=== PATIENT | male | born 1935 | race Caucasian/White ===

== ENCOUNTER 2018-06-08 07:19 | Emergency (ER) | payer MEDICARE, OTHER ==
[~2018-06-08] VITALS: Ht 182.9 cm; Wt 72.7 kg
[~2018-06-08 07:19] MED LIST: ANTIVERT25 MG PO; BAYER CHEWABLE81 MG PO; COZAAR100 MG PO; LIPITOR40 MG PO; NEXIUM40 MG PO; NIASPAN1000 MG PO; VALIUM 2 MG TAB2 MG PO
[2018-06-08 07:22] VITALS: Ht 182.9 cm; Wt 72.7 kg
[2018-06-08] MEDS ORDERED: TOPROL XL25 MG (07:24)
[2018-06-08] MEDS ORDERED: AUGMENTIN 875-11 TAB PO (09:11)
[2018-06-08] MEDS ORDERED: HYDROCODON-ACE1 EAC7 PO (09:11)
[2018-06-08 09:30] VITALS: BP 159/54
== END 2018-06-08 09:30 | disposition home or self-care (01) ==
LOC: D.ER 07:19
DX: S61.411A Laceration without foreign body of right hand, initial encounter (principal)

== ENCOUNTER 2019-02-10 03:48 | Inpatient (IN) | payer MEDICARE, OTHER ==
[~2019-02-10] VITALS: Ht 182.9 cm; Wt 79.5 kg
[~2019-02-10 03:48] MED LIST changes: +AUGMENTIN 875-11 TAB PO; +HYDROCODON-ACE1 EAC7 PO; +TOPROL XL25 MG
[2019-02-10] MEDS ORDERED: CELEBREX200 MG PO (04:03)
[2019-02-10 04:29] VITALS: BP 167/62
[2019-02-10 04:29] LABS: BASOPHILS 0.2 % (0-2); EOSINOPHILS 1.1 % (0-7); HEMATOCRIT 39.8 % (42.0-54.0); HEMOGLOBIN 13.1 g/dL (13.5-17.5); IMMATURE GRANULOCYTES 0.1 % (0-5); LYMPHOCYTES 21.7 % (15-50); MCHC 32.9 g/dL (31.0-37.0); MCV 88.1 fL (80.0-100.0); MEAN PLATELET VOLUME 9.6 fL (7.4-10.4); MONOCYTES 7.2 % (2-11); NEUTROPHILS 69.7 % (40-80); RBC 4.52 10x6/uL (4.20-6.10); RDW 13.6 % (11.5-14.5); WBC 9.7 10x3/uL (4.8-10.8)
[2019-02-10 04:30] LABS: PLATELET COUNT 154 10x3/uL (130-400)
[2019-02-10 04:41] LABS: CALC OSMOLALITY 281 mosm/kg (275-300); CALCIUM 9.3 mg/dL (8.5-10.1); CARBON DIOXIDE 29.4 mmol/L (21.0-32.0); CHLORIDE - SERUM 103 mmol/L (98-107); CREATININE - SERUM 0.9 mg/dL (0.6-1.3); GLUCOSE 127 mg/dL (74-106); POTASSIUM - SERUM 3.8 mmol/L (3.5-5.1); SODIUM 140 mmol/L (136-145); UREA NITROGEN 15 mg/dL (7-18); eGFR NON AFRICAN AMERICAN 85 mL/min (90-120)
[2019-02-10 04:49] LABS: ALBUMIN 3.9 g/dL (3.4-5.0); ALKALINE PHOSPHATASE 76 U/L (46-116); ALT (SGPT) 27 U/L (10-68); AMYLASE - SERUM 48 U/L (25-115); BILIRUBIN - TOTAL 0.74 mg/dL (0.2-1.3); LIPASE 168 U/L (73-393); PROTEIN - SERUM 7.4 g/dL (6.4-8.2)
[2019-02-10 04:50] LABS: TROPONIN-I < 0.017 ng/mL (0.000-0.060)
[2019-02-10 05:09] LABS: APPEARANCE CLOUDY (CLEAR); BILIRUBIN NEGATIVE (NEGATIVE); COLOR YELLOW (YELLOW); GLUCOSE NEGATIVE (NEGATIVE); KETONE NEGATIVE (NEGATIVE); NITRITE NEGATIVE (NEGATIVE); PROTEIN 1+ mg/dL (NEGATIVE); SPECIFIC GRAVITY 1.015 (1.005-1.020); UROBILINOGEN NORMAL (NORMAL)
[2019-02-10 05:18] LABS: AMORPHOUS SEDIMENT >1+ /lpf (NONE SEEN); BACTERIA FEW /hpf (NEGATIVE); EPITHELIAL CELLS 0-5 /hpf (0-5); RED CELLS - URINE 0-5 /hpf (0-5); WHITE CELLS - URINE 0-5 /hpf (NEGATIVE)
[2019-02-10 08:49] VITALS: BP 151/70
[2019-02-10 10:29] VITALS: BMI 23.7
--- NOTE | 2019-02-10 13:12 | NUR ---
TAKEN TO XRAY FOR BOWEL SERIES, CONT TO MONITOR
[2019-02-10 14:42] LABS: % SATURATION 18 % (15-55); IRON 70 ug/dl (35-150); TOTAL IRON BIND CAPACITY 376 ug/dl (260-445); UNSAT IRON BIND CAPACITY 306 ug/dl (150-375)
[2019-02-10 15:11] LABS: INR 1.03 (0.85-1.17)
[2019-02-10 15:24] VITALS: BP 151/70; BMI 23.8
[2019-02-10 17:03] VITALS: BP 161/66
--- NOTE | 2019-02-10 19:24 | NUR ---
PATIENT RESTING IN BED AND DENIES NEEDS AT THIS TIME. BED IN LOWEST POSITION AND CALL LIGHT WITHIN REACH. ENCOURAGED THE PATIENT TO CALL IF HE HAS NEEDS. WILL CONTINUE TO MONITOR.
[2019-02-10 20:00] VITALS: BP 117/50
[2019-02-10 20:37] VITALS: Ht 182.9 cm; Wt 79.5 kg
--- NOTE | 2019-02-10 23:17 | NUR ---
BROUGHT PATIENT SPECIMEN CUPS AND EXPLAINED TO HIS THAT WE NEEDS TO OBTAIN A SAMPLE OF URINE AND STOOL. PATIENT VERBALIZED UNDERSTANDING
[2019-02-11] VITALS: BP 119/47
[2019-02-11 04:00] VITALS: BP 98/57
--- NOTE | 2019-02-11 04:42 | NUR ---
PATIENT REMOVED TELE MONITOR AND REFUSED TO WEAR
[2019-02-11 06:31] LABS: BASOPHILS 0 % (0-2); EOSINOPHILS 0.8 % (0-7); HEMATOCRIT 33.9 % (42.0-54.0); HEMOGLOBIN 10.5 g/dL (13.5-17.5); LYMPHOCYTES 28.2 % (15-50); MCH 28.3 pg (26.0-34.0); MONOCYTES 13.7 % (2-11); NEUTROPHILS 57.3 % (40-80); RBC 3.71 10x6/uL (4.20-6.10)
[2019-02-11 06:48] LABS: MCV 91.4 fL (80.0-100.0); PLATELET COUNT 107 10x3/uL (130-400); WBC 3.9 10x3/uL (4.8-10.8)
[2019-02-11 06:56] LABS: ALBUMIN 3.1 g/dL (3.4-5.0); ALKALINE PHOSPHATASE 63 U/L (46-116); ALT (SGPT) 19 U/L (10-68); BILIRUBIN - TOTAL 0.62 mg/dL (0.2-1.3); CALC OSMOLALITY 291 mosm/kg (275-300); CALCIUM 7.9 mg/dL (8.5-10.1); CARBON DIOXIDE 27.3 mmol/L (21.0-32.0); CHLORIDE - SERUM 112 mmol/L (98-107); CREATININE - SERUM 0.6 mg/dL (0.6-1.3); GLUCOSE 93 mg/dL (74-106); PHOSPHOROUS 3.3 mg/dL (2.5-4.9); POTASSIUM - SERUM 3.6 mmol/L (3.5-5.1); PROTEIN - SERUM 5.4 g/dL (6.4-8.2); SODIUM 146 mmol/L (136-145); UREA NITROGEN 14 mg/dL (7-18); eGFR NON AFRICAN AMERICAN > 90 mL/min (90-120)
[2019-02-11 08:00] VITALS: BP 141/61
--- NOTE | 2019-02-11 09:00 | NUR ---
PATIENT STATES HE WOULD LIKE TO SHAVE. I SAID THAT WAS FINE. IN ROOM. IV THERAPY REPLACED NS BAG FOR BEEPING. CL IN REACH. NO NEEDS AT THIS TIME.
[2019-02-11 12:00] VITALS: BP 120/70
--- NOTE | 2019-02-11 16:17 | NUR ---
IN ROOM. REQUIRES "FOOT SOFTNER CREAM" FROM HOME. TO CUT HIS "[place]" TOENAILS. TOLD HIM HE WOULD BE BETTER TO DO THAT AT HOME. NO FURTHER NEEDS AT THIS TIME. CL IN REACH. TM
[2019-02-11 17:04] VITALS: BP 152/69
--- NOTE | 2019-02-11 17:09 | NUR ---
AND OTHER FAMILY IN ROOM. NO NEEDS AT THIS TIME. CL IN REACH. WCTM
[2019-02-11 20:00] VITALS: BP 92/50
[2019-02-12 04:00] VITALS: BP 130/52
[2019-02-12 06:36] LABS: BASOPHILS 0 % (0-2); EOSINOPHILS 3.6 % (0-7); HEMATOCRIT 32.8 % (42.0-54.0); LYMPHOCYTES 35.2 % (15-50); MCH 27.8 pg (26.0-34.0); MCHC 30.5 g/dL (31.0-37.0); MCV 91.1 fL (80.0-100.0); MEAN PLATELET VOLUME 9.9 fL (7.4-10.4); MONOCYTES 8.4 % (2-11); NEUTROPHILS 52.8 % (40-80); PLATELET COUNT 100 10x3/uL (130-400); RDW 13.8 % (11.5-14.5); WBC 3.3 10x3/uL (4.8-10.8)
[2019-02-12 06:48] LABS: CALC OSMOLALITY 285 mosm/kg (275-300); CALCIUM 7.6 mg/dL (8.5-10.1); CARBON DIOXIDE 25.4 mmol/L (21.0-32.0); CHLORIDE - SERUM 111 mmol/L (98-107); CREATININE - SERUM 0.6 mg/dL (0.6-1.3); GLUCOSE 86 mg/dL (74-106); MAGNESIUM - SERUM 1.9 mg/dL (1.8-2.4); PHOSPHOROUS 3.4 mg/dL (2.5-4.9); POTASSIUM - SERUM 3.3 mmol/L (3.5-5.1); SODIUM 144 mmol/L (136-145); UREA NITROGEN 12 mg/dL (7-18); eGFR NON AFRICAN AMERICAN > 90 mL/min (90-120)
--- NOTE | 2019-02-12 08:39 | NUR ---
PATIENT PROVIDED WITH SOME COFFEE. CL IN REACH. NO FURTHER NEEDS AT THIS TIME. WCTM
[2019-02-12 09:02] VITALS: BP 133/69
[2019-02-12 13:25] VITALS: BP 166/71
--- NOTE | 2019-02-12 16:36 | NUR ---
IV THERAPY REMOVED FROM RIGHT FOREARM. VERBALIZED UNDERSTANDING OF DISCHARGE INSTRUCTIONS. REFUSED WHEELCHAIR DOWN. WALKED OUT WITH .
== END 2019-02-12 17:12 | disposition home or self-care (01) | DRG 390 ==
LOC: D.ER 03:48 → D.MS 05:53
PROVIDERS: Family Medicine; ADMIT Internal Medicine Nephrology; ATTEND Internal Medicine Nephrology
DX: K56.600 Partial intestinal obstruction, unspecified as to cause (principal); I25.10 Atherosclerotic heart disease of native coronary artery without angina pectoris; I10 Essential (primary) hypertension; M19.90 Unspecified osteoarthritis, unspecified site; K57.90 Diverticulosis of intestine, part unspecified, without perforation or abscess without bleeding; Z95.0 Presence of cardiac pacemaker; E78.5 Hyperlipidemia, unspecified; K21.9 Gastro-esophageal reflux disease without esophagitis; K83.8 Other specified diseases of biliary tract